=== PATIENT | male | born 1975 | race African-American/Black ===

== ENCOUNTER 2017-05-21 10:55 | Emergency (ER) | payer SELFPAY ==
[~2017-05-21] VITALS: Ht 182.9 cm; Wt 86.0 kg
[~2017-05-21 10:55] MED LIST: IBUP800T23 PO; TRAM50 PO
[2017-05-21 11:11] VITALS: BP 151/90; PULSE 73; RESP 16; TEMP 98.2; O2SAT 99
[2017-05-21 11:59] LABS: AUTOMATED NEUTROPHIL # 3.9 TH/MM3 (1.8-7.7); BASOPHIL # 0.1 TH/MM3 (0-0.2); BASOPHIL % 0.8 % (0.0-2.0); EOSINOPHIL # 0.2 TH/MM3 (0-0.4); EOSINOPHIL % 2.6 % (0.0-4.0); HEMATOCRIT 39.2 % (39.0-51.0); LYMPH % 33.6 % (9.0-44.0); LYMPHOCYTE # 2.4 TH/MM3 (1.0-4.8); MEAN CELL VOLUME 92.3 FL (80.0-100.0); MEAN CORPUSCULAR HEMOGLOBIN 30.6 PG (27.0-34.0); MEAN CORPUSCULAR HGB CONC 33.1 % (32.0-36.0); MEAN PLATELET VOLUME 7.8 FL (7.0-11.0); MONO % 7.6 % (0.0-8.0); MONOCYTE # 0.5 TH/MM3 (0-0.9); NEUT % 55.4 % (16.0-70.0); PLATELET COUNT 250 TH/MM3 (150-450); RED BLOOD COUNT 4.24 MIL/MM3 (4.50-5.90); RED CELL DISTRIBUTION WIDTH 14.3 % (11.6-17.2); WHITE BLOOD COUNT 7.1 TH/MM3 (4.0-11.0)
[2017-05-21] MEDS ORDERED: IOHEXOL 350 MG/ML 10 ML VIAL (for RAD DIAG) IVCONTRAST ONE (12:08)
[2017-05-21 12:09] LABS: BICARBONATE 28.2 MEQ/L (21.0-32.0); CALCIUM 9.1 MG/DL (8.5-10.1)
[2017-05-21 12:13] LABS: CREATININE 1.1 MG/DL (0.60-1.30)
--- NOTE | 2017-05-21 12:25 | RADRPT ---
EXAM DATE/TIME: 05/21/2017 12:08 [place] COMPARISON: No previous studies available for comparison. INDICATIONS : Two lumps appeared on left side of neck three weeks ago and painful to the touch. IV CONTRAST: 65 cc Omnipaque 350 (iohexol) IV RADIATION DOSE: 12.68 CTDIvol (mGy) MEDICAL HISTORY : None SURGICAL HISTORY : None. ENCOUNTER: Initial ACUITY: 3 weeks PAIN SCALE: 5/10 LOCATION: Left neck TECHNIQUE: Volumetric scanning of the neck was performed. Using automated exposure control and adjustment of th e mA and/or kV according to patient size, radiation dose was kept as low as reasonably achievable to obtain optimal diagnostic quality images. DICOM format image data is available electronically for r eview and comparison. FINDINGS: NASOPHARYNX: The nasopharyngeal airway has a normal configuration. No mucosal thickening or mass is seen. OROPHARYNX: The intrinsic muscles of the tongue are symmetric. The tonsillar pillars are intact. The prevertebr al soft tissues are not thickened. LARYNX: The supraglottic, glottic, and infraglottic structures are intact. PARAPHARYNGEAL: The parapharyngeal space is intact. SALIVARY GLANDS: The parotid and submandibular glands are intact. LYMPH NODES: Small lymph nodes scattered throughout the neck including tube measuring approximately 1 cm along the left neck accounting for palpable lumps.. THYROID: Homogeneous enhancement without evidence of nodule. BONES: Unremarkable. There is some biapical emphysema CONCLUSION: 1. Multiple small scattered lymph nodes including to accounting for palpable lumps along the left nec k, likely benign. 2. Otherwise unremarkable CT soft tissue neck. Clarence Hoover MD on May 21, 2017 at 12:21 Board Certified Radiologist. This report was verified electronically.
[2017-05-21] MEDS ORDERED: DICL75TA PO (12:35)
[2017-05-21] MEDS ORDERED: CEPH-460 PO (12:35)
--- NOTE | 2017-05-21 12:38 | PD ---
HPI Chief Complaint: Skin Problem Time Seen by Provider: 11:17 Travel History International Travel<30 days: No Contact w/Intl Traveler<30days: No Traveled to known affect area: No History of Present Illness HPI 41-year-old male that presents to the ED for evaluation of lesions to his left neck. Per patient has 2 bumps on his neck. He is having for about 3 days now. Denies any injury, fevers chills or sweats. No other medical issues. No history of immunosuppression or loss of weight. Denies any fevers. Per patient is slightly painful 6 out of 10. Patient really concerned because he is never noticed it before. Has not seen anybody for this. No other medical issues. PFSH Past Medical History Medical History: Denies Significant Hx Influenza Vaccination: No Past Surgical History Surgical History: No Previous Surgery Social History Alcohol Use: Yes (rarely) Tobacco Use: Yes (OCC) Substance Use: Yes (marijuana) Allergies-Medications (Allergen,Severity, Reaction): Coded Allergies: No Known Allergies (Verified Allergy, Severe, 06/05/03) Reported Meds & Prescriptions Reported Meds & Active Scripts Active Diclofenac Sodium DR (Diclofenac Sodium) 75 Mg Tabdr 75 Mg PO BID PRN Keflex (Cephalexin) 500 Mg Cap 500 Mg PO Q8H 10 Days Review of Systems Except as stated in HPI: all other systems reviewed are Neg Physical Exam Narrative GENERAL: SKIN: Warm and dry. HEAD: Atraumatic. Normocephalic. EYES: Pupils equal and round. No scleral icterus. No injection or drainage. ENT: No nasal bleeding or discharge. Mucous membranes pink and moist. Patient has two lumps to his left neck. Appear to be mobile and slightly tender. No purulence or mass. Appears to be more of a lymph node cannot completely rule out abscess or cyst. Does follow the cervical lymph nodes. TMs are clear with no sign of infection or perforation. Tonsils are not enlarged or swollen. No uvula deviation. NECK: Trachea midline. No JVD. CARDIOVASCULAR: Regular rate and rhythm. RESPIRATORY: No accessory muscle use. Clear to auscultation. Breath sounds equal bilaterally. GASTROINTESTINAL: Abdomen soft, non-tender, nondistended. Hepatic and splenic margins not palpable. MUSCULOSKELETAL: Extremities without clubbing, cyanosis, or edema. No obvious deformities. NEUROLOGICAL: Awake and alert. No obvious cranial nerve deficits. Motor grossly within normal limits. Five out of 5 muscle strength in the arms and legs. Normal speech. PSYCHIATRIC: Appropriate mood and affect; insight and judgment normal. Data Data Last Documented VS Vital Signs Date Time Temp Pulse Resp B/P (MAP) Pulse Ox O2 Delivery O2 Flow Rate FiO2 05/21/17 11:11 98.2 73 16 151/90 (110) 99 Orders Orders Complete Blood Count With Diff (05/21/17 11:25) Basic Metabolic Panel (Bmp) (05/21/17 11:25) Iv Access Insert/Monitor (05/21/17 11:25) Ct Soft Tiss Neck W Iv Cont (05/21/17 ) Ed Discharge Order (05/21/17 12:37) Labs Laboratory Tests Test 05/21/17 11:50 White Blood Count 7.1 TH/MM3 Red Blood Count 4.24 MIL/MM3 Hemoglobin 13.0 GM/DL Hematocrit 39.2 % Mean Corpuscular Volume 92.3 FL Mean Corpuscular Hemoglobin 30.6 PG Mean Corpuscular Hemoglobin Concent 33.1 % Red Cell Distribution Width 14.3 % Platelet Count 250 TH/MM3 Mean Platelet Volume 7.8 FL Neutrophils (%) (Auto) 55.4 % Lymphocytes (%) (Auto) 33.6 % Monocytes (%) (Auto) 7.6 % Eosinophils (%) (Auto) 2.6 % Basophils (%) (Auto) 0.8 % Neutrophils # (Auto) 3.9 TH/MM3 Lymphocytes # (Auto) 2.4 TH/MM3 Monocytes # (Auto) 0.5 TH/MM3 Eosinophils # (Auto) 0.2 TH/MM3 Basophils # (Auto) 0.1 TH/MM3 CBC Comment DIFF FINAL Differential Comment Blood Urea Nitrogen 13 MG/DL Creatinine 1.10 MG/DL Random Glucose 72 MG/DL Calcium Level 9.1 MG/DL Sodium Level 140 MEQ/L Potassium Level 4.0 MEQ/L Chloride Level 107 MEQ/L Carbon Dioxide Level 28.2 MEQ/L Anion Gap 5 MEQ/L Estimat Glomerular Filtration Rate 90 ML/MIN MDM Medical Decision Making Medical Screen Exam Complete: Yes Emergency Medical Condition: Yes Medical Record Reviewed: Yes Interpretation(s) Last Impressions Neck CT 05/21/17 0000 Signed Impressions: Service Date/Time: Sunday, May 21, 2017 12:08 - CONCLUSION: 1. Multiple small scattered lymph nodes including to accounting for palpable lumps along the left neck, likely benign. 2. Otherwise unremarkable CT soft tissue neck. Clarence Hoover MD CBC & BMP Diagram 05/21/17 11:50 Calcium Level 9.1 Differential Diagnosis lymph nodes versus cyst versus abscess versus malignancy Narrative Course 41-year-old male that presents to the ED for evaluation of lesions to his left neck. Patient was properly examined and was found to have signs and symptoms concerning for inflamed lymph nodes versus infection versus malignancy. His physical exam is reassuring. There is no signs of infection on his throat or skin that I could see. No ear infection that I can see as well. I do recommend imaging and labs to rule out any sign of malignancy which were remarkable concerning. Patient has no other risk factors for this. He does smoke however. Labs and imaging were essentially unremarkable. Imaging did show what appears to be benign lymph nodes. At this time I recommend trial of antibiotics and anti-inflammatories to help with the symptoms. Patient was told to follow with PCP this does not improve. See ED worsening symptoms. Diagnosis Primary Impression: Acute lymphadenitis Patient Instructions: General Instructions Additional Instructions: Take medications as prescribed. Follow with PCP for further evaluate this does not improve in the next 2 weeks. See ED for any worsening symptoms. Warm compresses. Med/Other Pt SpecificInfo: Prescription(s) given Scripts Diclofenac Sodium (Diclofenac Sodium DR) 75 Mg Tabdr 75 MG PO BID Y for PAIN SCALE 1 TO 10, #20 TAB 0 Refills Prov: Magnus Murray MD 05/21/17 Cephalexin (Keflex) 500 Mg Cap 500 MG PO Q8H for Infection for 10 Days, #30 CAP 0 Refills Prov: Magnus Murray MD 05/21/17 Disposition: 01 DISCHARGE HOME Condition: Stable Jose Maciel May 21, 2017 12:38
== END 2017-05-21 12:51 | disposition home or self-care (01) ==
LOC: PHEFT 10:55
DX: L04.0 Acute lymphadenitis of face, head and neck (principal); Z72.0 Tobacco use; F12.90 Cannabis use, unspecified, uncomplicated
CPT/HCPCS: 70491; 80048; 85025; 99284; Q9967